=== PATIENT | male | born 1960 | race Two or more races ===

== ENCOUNTER 2018-01-30 07:55 | Inpatient (IN) | payer SELFPAY ==
[~2018-01-30] VITALS: Ht 182.9 cm; Wt 106.3 kg
[2018-01-30 09:02] LABS: Basophils # (auto) 0 uL; Basophils % (auto) 0.3 % (0.0-2.0); Eosinophils # (auto) 0 uL; Eosinophils % (auto) 0.1 % (0.0-7.0); Hematocrit 50.4 % (41.0-53.0); Hemoglobin 17.7 g/dL (13.5-17.5); Lymphocytes # (auto) 0.4 uL; Mean Corpuscular Hemoglobin 32.5 pg (28.0-32.0)
[2018-01-30 09:03] LABS: Lymphocytes % (auto) 3.1 % (10.0-50.0); Mean Corpuscular Hgb Conc. 35.2 g/dL (32.0-36.0); Mean Corpuscular Volume 92.4 fL (80.0-100.0); Monocytes # (auto) 0.4 uL; Monocytes % (auto) 2.8 % (0.0-12.0); Neutrophils # (auto) 13.4 uL; Neutrophils % (auto) 93.7 % (37.0-80.0); Nucleated Red Blood Cells % 0.3 %; Platelet Count (auto) 263 10^3/uL (140-450); Red Blood Cells 5.45 10^6/uL (4.5-5.90); Red Cell Distribution Width 12.6 % (11.8-14.3); White Blood Cell 14.3 10^3/uL (4.4-10.8)
[2018-01-30 09:27] LABS: Alanine Aminotransferase 31 U/L (16-61); Albumin 4.7 g/dL (3.4-5.0); Alkaline Phosphatase 122 U/L (45-117); Anion Gap 13 (5-15); Aspartate Aminotransferase 17 U/L (15-37); Bilirubin, Total 1.5 mg/dL (0.2-1.0); Blood Urea Nitrogen 33 mg/dL (7-18); Calcium 9.5 mg/dL (8.5-10.1); Carbon Dioxide 20 mmol/L (21-32); Chloride 105 mmol/L (98-107); GFR African American 78 mL/min; GFR Non-African American 65 mL/min; Glucose 165 mg/dL (74-106); Magnesium 2.5 mg/dL (1.6-2.6); Potassium 3.6 mmol/L (3.5-5.1); Sodium 138 mmol/L (136-145)
[2018-01-30] MEDS ORDERED: SODIUM CHLORIDE 0.9% 1,000 ML IVB ONE (11:19)
[2018-01-30] MEDS ORDERED: HYDROmorphone HCL 2 MG/ML VL IV ONE (11:30)
[2018-01-30] MEDS ORDERED: cefTRIAXone 1GM/10ml StH20 or NS KIT IVpush IV ONE (11:30)
[2018-01-30 12:21] LABS: INR 0.91 (0.9-1.15); Partial Thromboplastin Time 25.7 sec (23.78-33.04); Prothrombin Time 9.8 sec (9.27-12.13)
[2018-01-30] MEDS: PROMETHAZINE HCL 25 MG/ML 1ML IV PRN (12:30)
[2018-01-30] MEDS ORDERED: PROMETHAZINE HCL 25 MG/ML 1ML IV PRN (13:30)
[2018-01-30] MEDS ORDERED: cefTRIAXone 1GM/10ml IVPUSH 10 ML IV ONE (13:30)
[2018-01-30] MEDS ORDERED: MORPHINE SULF INJ 2 MG/ML SYRINGE 1ML IV PRN ×3 (13:30→15:45)
[2018-01-30] MEDS ORDERED: DEXTROSE (50%) 50ML SYRG IV PRN (13:30)
[2018-01-30] MEDS ORDERED: NITROGLYCERIN 0.4 MG SL TAB SL PRN (13:30)
[2018-01-30] MEDS ORDERED: PANTOPRAZOLE 40 MG/10 ML VIAL IV ONE (13:30)
[2018-01-30] MEDS ORDERED: LORazepam 2MG/ML-1ML VIAL IV PRN (13:30)
[2018-01-30] MEDS ORDERED: ENOXAPARIN SOD 40 MG/0.4 ML SYRINGE SC ONE ×2 (13:45→14:00)
[2018-01-30] MEDS: SODIUM CHLORIDE 0.9% 1,000 ML IV SCH (13:45)
[2018-01-30] MEDS ORDERED: fentaNYL CITRATE 100 MCG/2 ML VL ONE ×3 (15:14→18:59)
[2018-01-30] MEDS ORDERED: MIDAZOLAM HCL 1MG/1ML-2 ML VIAL ONE (15:15)
[2018-01-30] MEDS ORDERED: BUPIVACAINE 0.25% INJ 50ML VIAL ONE (15:15)
[2018-01-30] MEDS ORDERED: MEPERIDINE HCL (50 MG/ML) 1 ML VIAL ONE (15:16)
[2018-01-30] MEDS ORDERED: DEXAMETHASONE SOD PHOS 10MG/1ML VIAL INJ ONE (15:17)
[2018-01-30] MEDS ORDERED: PROPOFOL 10 MG/ML 20 ML IV ONE (15:17)
[2018-01-30] MEDS ORDERED: SUCCINYLCHOLINE CHLORIDE 20 MG/ML 10ML VIAL IV ONE (15:18)
[2018-01-30] MEDS ORDERED: MIDAZOLAM HCL 1MG/1ML-2 ML VIAL IV PRN (15:45)
[2018-01-30] MEDS ORDERED: HYDROmorphone HCL 2 MG/ML VL IV PRN (15:45)
[2018-01-30] MEDS: KETOROLAC TROMETH 30 MG/ML 1ML VIAL IV ONE ×2 (15:45→21:44)
[2018-01-30] MEDS ORDERED: ONDANSETRON HCL 4 MG/2 ML VIAL IV ONE (15:45)
[2018-01-30] MEDS ORDERED: ePHEDrine SULFATE 50 MG/ML AMP IV PRN (15:45)
[2018-01-30] MEDS ORDERED: LABETALOL HCL 5 MG/ML 4ML SYRINGE IV PRN (15:45)
[2018-01-30] MEDS ORDERED: ACCU-CHEK COMFORT CURVE STRIP VI ONE (15:45)
[2018-01-30] MEDS ORDERED: ROCURONIUM 10MG/ML 10ML VIAL IV ONE (15:47)
[2018-01-30] MEDS ORDERED: MORPHINE SULF INJ 2 MG/ML SYRINGE 1ML IV ONE (16:00)
[2018-01-30] MEDS ORDERED: fentaNYL CITRATE 100 MCG/2 ML VL IV ONE (16:00)
[2018-01-30] MEDS ORDERED: KETOROLAC TROMETH 30 MG/ML 1ML VIAL ONE (16:13)
[2018-01-30] MEDS ORDERED: GLYCOPYRROLATE 0.2 MG/ML 1ML VIAL ONE (16:42)
[2018-01-30] MEDS ORDERED: NEOSTIGMINE 1 MG/ML INJ (10mg/10ML VIAL) ONE (16:42)
[2018-01-30] MEDS ORDERED: ceFAZolin 1GM VL ONE (19:10)
[2018-01-30 22:00] VITALS: BP 147/94
[2018-01-31] VITALS: BP 135/94
[2018-01-31] MEDS: metroNIDAZOLE 500MG/100ML 100 ML IV SCH ×4 (00:20→18:28)
[2018-01-31] MEDS: ACCU-CHEK COMFORT CURVE STRIP VI SCH ×5 (00:45→23:11)
[2018-01-31] MEDS: D5W/SOD CHLO 0.9% 1,000 ML IV SCH ×4 (00:45→20:17)
[2018-01-31] MEDS: InsuLIN REG 1unit/0.01ml Soln (100units/ml) SC SCH ×5 (01:06→23:11)
[2018-01-31] MEDS: MORPHINE SULF INJ 2 MG/ML SYRINGE 1ML IV PRN ×6 (01:16→21:47)
[2018-01-31 04:00] VITALS: BP 139/93
[2018-01-31 04:54] LABS: Basophils # (auto) 0 uL; Eosinophils # (auto) 0 uL; Eosinophils % (auto) 0.1 % (0.0-7.0); Hematocrit 46.1 % (41.0-53.0); Hemoglobin 15.1 g/dL (13.5-17.5); Lymphocytes # (auto) 0.6 uL; Lymphocytes % (auto) 4.6 % (10.0-50.0); Mean Corpuscular Hemoglobin 32.2 pg (28.0-32.0); Mean Corpuscular Hgb Conc. 32.8 g/dL (32.0-36.0); Mean Corpuscular Volume 98.3 fL (80.0-100.0); Monocytes # (auto) 0.8 uL; Monocytes % (auto) 6.4 % (0.0-12.0); Neutrophils # (auto) 11.1 uL; Neutrophils % (auto) 88.9 % (37.0-80.0); Nucleated Red Blood Cells % 0.1 %; Platelet Count (auto) 199 10^3/uL (140-450); Red Blood Cells 4.69 10^6/uL (4.5-5.90); Red Cell Distribution Width 12.7 % (11.8-14.3); White Blood Cell 12.5 10^3/uL (4.4-10.8)
[2018-01-31 05:16] LABS: Albumin 3.3 g/dL (3.4-5.0); BUN/Creatinine Ratio 23.1; Bilirubin, Total 1.2 mg/dL (0.2-1.0); Calcium 8.3 mg/dL (8.5-10.1); Potassium 3.6 mmol/L (3.5-5.1); Total Protein 6.8 g/dL (6.4-8.2)
[2018-01-31 08:00] VITALS: BP 135/95
[2018-01-31] MEDS ORDERED: cefTRIAXone 1GM/10ml IVPUSH 10 ML IV SCH (09:00)
[2018-01-31] MEDS: PROMETHAZINE HCL 25 MG/ML 1ML IV PRN (09:11)
[2018-01-31] MEDS: SODIUM CHLORIDE 0.9% 1,000 ML IV SCH ×2 (09:13)
[2018-01-31] MEDS: PANTOPRAZOLE 40 MG/10 ML VIAL IV SCH (09:13)
[2018-01-31] MEDS: ENOXAPARIN SOD 40 MG/0.4 ML SYRINGE SC SCH (09:14)
[2018-01-31] MEDS ORDERED: HYDROmorphone HCL 2 MG/ML VL IV PRN (09:45)
[2018-01-31] MEDS ORDERED: ENOXAPARIN SOD 40 MG/0.4 ML SYRINGE SC SCH ×2 (10:00)
[2018-01-31] MEDS ORDERED: MORPHINE SULFATE 4 MG/ML SYR/VIAL IV PRN (11:15)
[2018-01-31 11:50] VITALS: BP 131/90
[2018-01-31] MEDS: PIPERACILLIN-TAZOB 3.375GM 100 ML IV SCH ×2 (15:35→20:10)
[2018-01-31 15:50] VITALS: BP 135/90
[2018-01-31] MEDS: ACETAMINOPHEN 650 MG RECT SUPP PR PRN (16:39)
[2018-01-31] MEDS ORDERED: VANCOMYCIN PER PHARMACY 0 MG IV SCH (18:45)
[2018-01-31] MEDS ORDERED: ACETAMINOPHEN 325 MG RECT SUPP PR ONE (18:45)
[2018-01-31 19:51] VITALS: BP 148/95
[2018-01-31 19:51] LABS: Lactic Acid w/Reflex 2.6 mmol/L (0.4-2.0)
[2018-01-31 20:25] LABS: Urine Bacteria FEW /hpf (None Seen); Urine Blood Negative /uL (Negative); Urine Mucus FEW (None Seen); Urine Specific Gravity 1.025 (1.001-1.035); Urine WBC 4 /hpf (0 - 3)
[2018-01-31] MEDS: VANCOMYCIN 1,250 MG in D5W 5% 250 ML IV SCH (22:26)
[2018-02-01] VITALS: BP 153/85
[2018-02-01] MEDS: metroNIDAZOLE 500MG/100ML 100 ML IV SCH ×4 (00:20→19:00)
[2018-02-01] MEDS: MORPHINE SULF INJ 2 MG/ML SYRINGE 1ML IV PRN ×3 (00:50→06:58)
[2018-02-01 01:00] LABS: Lactic Acid w/Reflex 2.6 mmol/L (0.4-2.0)
[2018-02-01] MEDS: PIPERACILLIN-TAZOB 3.375GM 100 ML IV SCH ×4 (01:35→20:00)
[2018-02-01] MEDS: D5W/SOD CHLO 0.9% 1,000 ML IV SCH ×3 (01:36→20:42)
[2018-02-01 04:00] VITALS: BP 146/98
[2018-02-01 04:57] LABS: Basophils # (auto) 0 uL; Basophils % (auto) 0.2 % (0.0-2.0); Eosinophils # (auto) 0 uL; Eosinophils % (auto) 0.1 % (0.0-7.0); Hematocrit 38.1 % (41.0-53.0); Hemoglobin 13.2 g/dL (13.5-17.5); Lymphocytes # (auto) 0.6 uL; Lymphocytes % (auto) 6.6 % (10.0-50.0); Mean Corpuscular Hemoglobin 32.3 pg (28.0-32.0); Mean Corpuscular Hgb Conc. 34.5 g/dL (32.0-36.0); Mean Corpuscular Volume 93.6 fL (80.0-100.0); Monocytes # (auto) 0.6 uL; Neutrophils # (auto) 7.3 uL; Neutrophils % (auto) 86.1 % (37.0-80.0); Platelet Count (auto) 166 10^3/uL (140-450); Red Blood Cells 4.08 10^6/uL (4.5-5.90); Red Cell Distribution Width 12.8 % (11.8-14.3); White Blood Cell 8.5 10^3/uL (4.4-10.8)
[2018-02-01 05:20] LABS: Lactic Acid w/Reflex 2.4 mmol/L (0.4-2.0)
[2018-02-01 05:26] LABS: Albumin 2.7 g/dL (3.4-5.0); BUN/Creatinine Ratio 13.9; Bilirubin, Total 2.3 mg/dL (0.2-1.0); Calcium 8.1 mg/dL (8.5-10.1); Magnesium 2.1 mg/dL (1.6-2.6); Potassium 4.1 mmol/L (3.5-5.1); Total Protein 6.4 g/dL (6.4-8.2)
[2018-02-01] MEDS: ACCU-CHEK COMFORT CURVE STRIP VI SCH ×3 (05:48→18:06)
[2018-02-01] MEDS: InsuLIN REG 1unit/0.01ml Soln (100units/ml) SC SCH ×3 (05:48→18:00)
[2018-02-01 08:00] VITALS: BP 145/91
[2018-02-01] MEDS ORDERED: NALBUPHINE HCL 10 MG/1ml INJECTION IV ONE (08:45)
[2018-02-01] MEDS: ENOXAPARIN SOD 40 MG/0.4 ML SYRINGE SC SCH (09:35)
[2018-02-01] MEDS: PANTOPRAZOLE 40 MG/10 ML VIAL IV SCH (09:35)
[2018-02-01] MEDS: KETOROLAC TROMETH 30 MG/ML 1ML VIAL IV PRN ×2 (09:35→15:42)
[2018-02-01] MEDS: VANCOMYCIN 1,250 MG in D5W 5% 250 ML IV SCH ×2 (11:21→23:00)
[2018-02-01 11:36] VITALS: BP 132/83
[2018-02-01 16:03] VITALS: BP 148/94
[2018-02-01 20:02] VITALS: BP 136/83
[2018-02-01] MEDS: LORazepam 2MG/ML-1ML VIAL IV PRN (22:25)
[2018-02-02] VITALS: BP 123/75
[2018-02-02] MEDS: metroNIDAZOLE 500MG/100ML 100 ML IV SCH ×4 (01:00→19:14)
[2018-02-02] MEDS: PIPERACILLIN-TAZOB 3.375GM 100 ML IV SCH ×4 (02:00→20:02)
[2018-02-02 04:00] VITALS: BP 129/81
[2018-02-02 05:01] LABS: Basophils # (auto) 0 uL; Basophils % (auto) 0.3 % (0.0-2.0); Eosinophils # (auto) 0.1 uL; Eosinophils % (auto) 1.7 % (0.0-7.0); Hematocrit 34.5 % (41.0-53.0); Hemoglobin 11.8 g/dL (13.5-17.5); Lymphocytes # (auto) 0.5 uL; Lymphocytes % (auto) 6.4 % (10.0-50.0); Mean Corpuscular Hemoglobin 31.5 pg (28.0-32.0); Mean Corpuscular Hgb Conc. 34.3 g/dL (32.0-36.0); Mean Corpuscular Volume 91.8 fL (80.0-100.0); Monocytes # (auto) 0.5 uL; Monocytes % (auto) 6.7 % (0.0-12.0); Neutrophils # (auto) 6.6 uL; Neutrophils % (auto) 84.9 % (37.0-80.0); Platelet Count (auto) 173 10^3/uL (140-450); Red Blood Cells 3.76 10^6/uL (4.5-5.90); Red Cell Distribution Width 12.6 % (11.8-14.3); White Blood Cell 7.8 10^3/uL (4.4-10.8)
[2018-02-02 05:23] LABS: Albumin 2.1 g/dL (3.4-5.0); Calcium 7.4 mg/dL (8.5-10.1); Potassium 3.1 mmol/L (3.5-5.1)
[2018-02-02 05:25] LABS: BUN/Creatinine Ratio 21.7
[2018-02-02 05:28] LABS: Bilirubin, Total 1.5 mg/dL (0.2-1.0)
[2018-02-02] MEDS: ACCU-CHEK COMFORT CURVE STRIP VI SCH ×5 (06:00→22:42)
[2018-02-02] MEDS: InsuLIN REG 1unit/0.01ml Soln (100units/ml) SC SCH ×5 (06:00→23:22)
[2018-02-02 08:00] VITALS: BP 135/55
[2018-02-02] MEDS: D5W/SOD CHLO 0.9% 1,000 ML IV SCH ×2 (08:41→18:03)
[2018-02-02] MEDS: KETOROLAC TROMETH 30 MG/ML 1ML VIAL IV PRN ×3 (09:43→22:09)
[2018-02-02] MEDS: PANTOPRAZOLE 40 MG/10 ML VIAL IV SCH (09:43)
[2018-02-02] MEDS: ENOXAPARIN SOD 40 MG/0.4 ML SYRINGE SC SCH (09:44)
[2018-02-02] MEDS ORDERED: POTASSIUM CHLORIDE 40 MEQ, LIDOCAINE 1% (LOCAL ANESTH.) 4 ML in SODIUM CHL 0.9% 100 ML IV ONE (10:30)
[2018-02-02] MEDS ORDERED: POTASSIUM CHL 20MEQ/100ML 100 ML IV ONE ×2 (10:30→13:30)
[2018-02-02] MEDS: VANCOMYCIN 1,250 MG in D5W 5% 250 ML IV SCH ×2 (11:42→22:41)
[2018-02-02 12:00] VITALS: BP 143/91
[2018-02-02 15:57] VITALS: BP 138/89
[2018-02-02 19:50] VITALS: BP 142/83
[2018-02-02] MEDS: ACETAMINOPHEN 650 MG RECT SUPP PR PRN (20:02)
[2018-02-02] MEDS: LORazepam 2MG/ML-1ML VIAL IV PRN (22:06)
[2018-02-03] VITALS: BP 122/70
[2018-02-03] MEDS: metroNIDAZOLE 500MG/100ML 100 ML IV SCH ×4 (01:03→19:49)
[2018-02-03] MEDS: PIPERACILLIN-TAZOB 3.375GM 100 ML IV SCH ×4 (02:05→20:20)
[2018-02-03] MEDS: D5W/SOD CHLO 0.9% 1,000 ML IV SCH ×3 (02:06→21:57)
[2018-02-03 04:00] VITALS: BP 143/88
[2018-02-03] MEDS: KETOROLAC TROMETH 30 MG/ML 1ML VIAL IV PRN ×4 (04:24→22:55)
[2018-02-03 05:09] LABS: Basophils # (auto) 0 uL; Basophils % (auto) 0.4 % (0.0-2.0); Eosinophils # (auto) 0.3 uL; Eosinophils % (auto) 3.7 % (0.0-7.0); Hematocrit 35.1 % (41.0-53.0); Hemoglobin 12.3 g/dL (13.5-17.5); Lymphocytes # (auto) 0.5 uL; Lymphocytes % (auto) 7.6 % (10.0-50.0); Mean Corpuscular Hemoglobin 32.4 pg (28.0-32.0); Mean Corpuscular Volume 92.6 fL (80.0-100.0); Monocytes # (auto) 0.6 uL; Monocytes % (auto) 8.6 % (0.0-12.0); Neutrophils # (auto) 5.5 uL; Neutrophils % (auto) 79.7 % (37.0-80.0); Platelet Count (auto) 216 10^3/uL (140-450); Red Blood Cells 3.79 10^6/uL (4.5-5.90); Red Cell Distribution Width 12.4 % (11.8-14.3); White Blood Cell 6.9 10^3/uL (4.4-10.8)
[2018-02-03 05:19] LABS: BUN/Creatinine Ratio 20.4; Calcium 7.5 mg/dL (8.5-10.1); Potassium 3.2 mmol/L (3.5-5.1)
[2018-02-03] MEDS: InsuLIN REG 1unit/0.01ml Soln (100units/ml) SC SCH ×4 (06:00→23:42)
[2018-02-03 06:02] LABS: Albumin 2.3 g/dL (3.4-5.0); Bilirubin, Direct 0.6 mg/dL (0-0.2); Bilirubin, Total 1.7 mg/dL (0.2-1.0); Total Protein 6.4 g/dL (6.4-8.2)
[2018-02-03] MEDS: LORazepam 2MG/ML-1ML VIAL IV PRN ×2 (06:35→23:43)
[2018-02-03] MEDS: ACCU-CHEK COMFORT CURVE STRIP VI SCH ×4 (06:35→23:42)
[2018-02-03] MEDS ORDERED: POTASSIUM CHL 20MEQ/100ML 100 ML IV ONE (07:45)
[2018-02-03] MEDS: PANTOPRAZOLE 40 MG/10 ML VIAL IV SCH (10:00)
[2018-02-03] MEDS: ENOXAPARIN SOD 40 MG/0.4 ML SYRINGE SC SCH (10:01)
[2018-02-03] MEDS: VANCOMYCIN 1,250 MG in D5W 5% 250 ML IV SCH (10:38)
[2018-02-03 11:54] VITALS: BP 120/66
[2018-02-03 17:36] VITALS: BP 140/88
[2018-02-03 22:00] VITALS: BP 137/90
[2018-02-04] MEDS: metroNIDAZOLE 500MG/100ML 100 ML IV SCH ×5 (00:30→19:55)
[2018-02-04] MEDS: PIPERACILLIN-TAZOB 3.375GM 100 ML IV SCH ×2 (01:34→09:03)
[2018-02-04] MEDS: KETOROLAC TROMETH 30 MG/ML 1ML VIAL IV PRN ×3 (04:45→19:01)
[2018-02-04 05:00] VITALS: BP 140/89
[2018-02-04 05:57] LABS: Hematocrit 30.6 % (41.0-53.0); Mean Corpuscular Hemoglobin 32.5 pg (28.0-32.0); Mean Corpuscular Hgb Conc. 35.9 g/dL (32.0-36.0); Mean Corpuscular Volume 90.7 fL (80.0-100.0); Platelet Count (auto) 220 10^3/uL (140-450); Red Blood Cells 3.37 10^6/uL (4.5-5.90); Red Cell Distribution Width 12.4 % (11.8-14.3)
[2018-02-04] MEDS: InsuLIN REG 1unit/0.01ml Soln (100units/ml) SC SCH ×3 (06:00→18:00)
[2018-02-04] MEDS: ACCU-CHEK COMFORT CURVE STRIP VI SCH ×3 (06:08→18:00)
[2018-02-04 06:19] LABS: Basophils % (manual) 0 (0.0-2.0); Blast Cells 0; Metamyelocytes % 0; Promyelocytes % 0; Reactive Lymphocytes 0
[2018-02-04 06:23] LABS: Bilirubin, Total 1.5 mg/dL (0.2-1.0); Calcium 7.5 mg/dL (8.5-10.1); Magnesium 2.2 mg/dL (1.6-2.6); Total Protein 5.7 g/dL (6.4-8.2)
[2018-02-04 06:42] LABS: Band Neutrophils % (manual) 3; Eosinophils % (manual) 3 (0-7); Lymphocytes % (manual) 15 (10.0-50.0); Monocytes % (manual) 8 (0-12); Myelocytes % 1
[2018-02-04 08:10] VITALS: BP 126/84
[2018-02-04] MEDS: D5W/SOD CHLO 0.9% 1,000 ML IV SCH ×2 (08:15→18:15)
[2018-02-04] MEDS: ENOXAPARIN SOD 40 MG/0.4 ML SYRINGE SC SCH (09:03)
[2018-02-04] MEDS: PANTOPRAZOLE 40 MG/10 ML VIAL IV SCH (09:03)
[2018-02-04] MEDS ORDERED: cefTRIAXone 1GM/10ml IVPUSH 10 ML IV ONE (09:30)
[2018-02-04 12:01] VITALS: BP 135/80
[2018-02-04] MEDS: POTASSIUM CHL 20MEQ/100ML 100 ML IV SCH ×2 (12:16→12:33)
[2018-02-04] MEDS: cefTRIAXone 1GM/10ml IVPUSH 10 ML IV SCH (12:37)
[2018-02-04 16:24] VITALS: BP 154/94
[2018-02-04 22:00] VITALS: BP 140/84
[2018-02-05] MEDS: ACCU-CHEK COMFORT CURVE STRIP VI SCH ×5 (00:03→23:57)
[2018-02-05] MEDS: metroNIDAZOLE 500MG/100ML 100 ML IV SCH ×4 (01:00→22:26)
[2018-02-05] MEDS: KETOROLAC TROMETH 30 MG/ML 1ML VIAL IV PRN ×2 (01:05→19:50)
[2018-02-05] MEDS: D5W/SOD CHLO 0.9% 1,000 ML IV SCH ×2 (04:15→14:29)
[2018-02-05 05:00] VITALS: BP 134/84
[2018-02-05] MEDS: InsuLIN REG 1unit/0.01ml Soln (100units/ml) SC SCH ×5 (06:00→23:57)
[2018-02-05 06:52] LABS: Potassium 3.1 mmol/L (3.5-5.1)
[2018-02-05 09:00] VITALS: BP 138/84
[2018-02-05] MEDS: POTASSIUM CHL 20MEQ/100ML 100 ML IV SCH ×2 (09:00→10:15)
[2018-02-05] MEDS: ENOXAPARIN SOD 40 MG/0.4 ML SYRINGE SC SCH (10:00)
[2018-02-05 13:17] VITALS: BP 136/93
[2018-02-05] MEDS: PANTOPRAZOLE 40 MG/10 ML VIAL IV SCH (16:58)
[2018-02-05 17:00] VITALS: BP_SYST 136; BP_SYST 149; BP_DIAS 88; BP_DIAS 93
[2018-02-05 22:00] VITALS: BP 155/95
[2018-02-06] MEDS: D5W/SOD CHLO 0.9% 1,000 ML IV SCH ×3 (00:15→10:00)
[2018-02-06] MEDS ORDERED: TEMAZEPAM 15 MG CAP PO ONE (01:00)
[2018-02-06] MEDS: metroNIDAZOLE 500MG/100ML 100 ML IV SCH ×4 (03:58→21:51)
[2018-02-06 05:31] VITALS: BP 146/95
[2018-02-06] MEDS: KETOROLAC TROMETH 30 MG/ML 1ML VIAL IV PRN ×3 (05:34→19:47)
[2018-02-06] MEDS: InsuLIN REG 1unit/0.01ml Soln (100units/ml) SC SCH ×3 (06:00→17:59)
[2018-02-06] MEDS: ACCU-CHEK COMFORT CURVE STRIP VI SCH ×3 (06:27→17:59)
[2018-02-06 09:00] VITALS: BP 150/93
[2018-02-06] MEDS: ENOXAPARIN SOD 40 MG/0.4 ML SYRINGE SC SCH (09:00)
[2018-02-06] MEDS: cefTRIAXone 1GM/10ml IVPUSH 10 ML IV SCH (09:01)
[2018-02-06] MEDS: PANTOPRAZOLE 40 MG/10 ML VIAL IV SCH (09:01)
[2018-02-06] MEDS ORDERED: POTASSIUM CHL 20 Meq TABLET PO ONE (10:00)
[2018-02-06 13:00] VITALS: BP 159/99
[2018-02-06 16:35] VITALS: BP 134/81
[2018-02-06 22:00] VITALS: BP 138/90
[2018-02-07] MEDS: ACCU-CHEK COMFORT CURVE STRIP VI SCH ×3 (00:16→11:22)
[2018-02-07] MEDS: D5W/SOD CHLO 0.9% 1,000 ML IV SCH ×2 (02:40→09:23)
[2018-02-07] MEDS: KETOROLAC TROMETH 30 MG/ML 1ML VIAL IV PRN ×3 (03:11→20:07)
[2018-02-07] MEDS: metroNIDAZOLE 500MG/100ML 100 ML IV SCH ×4 (04:17→22:05)
[2018-02-07 05:00] VITALS: BP 141/78
[2018-02-07] MEDS: InsuLIN REG 1unit/0.01ml Soln (100units/ml) SC SCH ×3 (06:00→11:22)
[2018-02-07 06:45] LABS: Hemoglobin 11.2 g/dL (13.5-17.5); Mean Corpuscular Hemoglobin 32.2 pg (28.0-32.0); Mean Corpuscular Hgb Conc. 36.1 g/dL (32.0-36.0); Mean Corpuscular Volume 89.3 fL (80.0-100.0); Platelet Count (auto) 327 10^3/uL (140-450); Red Blood Cells 3.47 10^6/uL (4.5-5.90); Red Cell Distribution Width 12.7 % (11.8-14.3); White Blood Cell 9.5 10^3/uL (4.4-10.8)
[2018-02-07 06:49] LABS: Basophils % (manual) 0 (0.0-2.0); Blast Cells 0; Eosinophils % (manual) 0 (0-7); Myelocytes % 0; Promyelocytes % 0; Reactive Lymphocytes 0
[2018-02-07 07:17] LABS: Albumin 2.4 g/dL (3.4-5.0); BUN/Creatinine Ratio 11.7; Bilirubin, Total 0.8 mg/dL (0.2-1.0); Calcium 8.2 mg/dL (8.5-10.1); Magnesium 2.4 mg/dL (1.6-2.6); Potassium 3.6 mmol/L (3.5-5.1); Total Protein 6.3 g/dL (6.4-8.2)
[2018-02-07 07:20] LABS: Band Neutrophils % (manual) 3; Lymphocytes % (manual) 9 (10.0-50.0); Metamyelocytes % 1; Monocytes % (manual) 6 (0-12)
[2018-02-07 08:34] VITALS: BP 136/85
[2018-02-07] MEDS: PANTOPRAZOLE 40 MG/10 ML VIAL IV SCH (09:22)
[2018-02-07] MEDS: cefTRIAXone 1GM/10ml IVPUSH 10 ML IV SCH (09:22)
[2018-02-07] MEDS: ENOXAPARIN SOD 40 MG/0.4 ML SYRINGE SC SCH (09:22)
[2018-02-07 13:44] VITALS: BP 125/91
[2018-02-07 16:58] VITALS: BP 136/93
[2018-02-07 22:00] VITALS: BP 134/84
[2018-02-08] MEDS: metroNIDAZOLE 500MG/100ML 100 ML IV SCH ×2 (03:40→09:44)
[2018-02-08 05:00] VITALS: BP 141/88
[2018-02-08] MEDS: KETOROLAC TROMETH 30 MG/ML 1ML VIAL IV PRN (06:44)
[2018-02-08] MEDS ORDERED: LEVO500T21 PO (08:12)
[2018-02-08] MEDS ORDERED: METR500T PO (08:12)
[2018-02-08 08:45] VITALS: BP 140/86
[2018-02-08] MEDS ORDERED: TRAM-297 PO (09:22)
[2018-02-08] MEDS: cefTRIAXone 1GM/10ml IVPUSH 10 ML IV SCH (09:43)
[2018-02-08] MEDS: PANTOPRAZOLE 40 MG/10 ML VIAL IV SCH (09:44)
[2018-02-08] MEDS ORDERED: ENOXAPARIN SOD 40 MG/0.4 ML SYRINGE SC SCH (10:00)
== END 2018-02-08 13:00 | disposition home or self-care (01) | DRG 853 ==
LOC: ER 08:02 → TELE 08:03 → DOU IN ICU 22:05 → CENTRAL 02-03 15:24
PROVIDERS: ADMIT Internal Medicine; ATTEND Internal Medicine
PROC: 0DJD4ZZ Inspection of Lower Intestinal Tract, Percutaneous Endoscopic Approach (ICD-10-PCS; 2018-01-30)
PROC: 0DTJ0ZZ Resection of Appendix, Open Approach (ICD-10-PCS; principal; 2018-01-30 15:35)
DX: A41.9 Sepsis, unspecified organism (principal); N17.0 Acute kidney failure with tubular necrosis; K35.3 Acute appendicitis with localized peritonitis; K56.50 Intestinal adhesions [bands], unspecified as to partial versus complete obstruction; E86.0 Dehydration; E87.6 Hypokalemia; E66.9 Obesity, unspecified; Z83.3 Family history of diabetes mellitus; Z82.49 Family history of ischemic heart disease and other diseases of the circulatory system; Z68.31 Body mass index [BMI] 31.0-31.9, adult
CPT/HCPCS: 36415; 71046; 74176; 80048; 80053; 80061; 80076; 80202; 81001; 82247; 82962; 83036; 83605; 83690; 83735; 84132; 84484; 85007; 85025; 85027; 85610; 85730; 86850; 86900; 86901; 87040; 87081; 87086; 93005; 96361; 96372; 96374; 96375; C9113; J0330; J0690; J1100; J1815; J1885; J2250; J2543; J2704; J3480; J3490; J7042; J7060